=== PATIENT | male | born 1985 | race Caucasian/White ===

== ENCOUNTER 2017-08-12 18:42 | Emergency (ER) | payer SELFPAY ==
[~2017-08-12] VITALS: Ht 180.3 cm; Wt 90.7 kg
[2017-08-12] MEDS ORDERED: MULTIVIT INFUSN,ADULT 4,VIT K 10 ML, FOLIC ACID 1 MG, THIAMINE 100 MG in IV NORMAL SALI... IV SCH (19:15)
[2017-08-12 19:39] LABS: BASO # 0.1 x10^3/uL (0.0-0.2); BASO % 1 % (0-3); EOS % 4 % (0-3); HEMATOCRIT 44.2 % (39.0-53.0); HEMOGLOBIN 15.2 g/dL (13.0-17.5); LYMPH # 2.4 x10^3/uL (1.0-4.8); LYMPH % 28 % (24-48); MEAN CORPUSCULAR HEMOGLOBIN 31 pg (25-35); MEAN CORPUSCULAR HGB CONC 34 g/dL (31-37); MEAN CORPUSCULAR VOLUME 91 fL (79-100); MONO % 5 % (0-9); NEUT % 63 % (31-73); PLATELET COUNT 297 x10^3/uL (140-400); RED BLOOD COUNT 4.85 x10^6/uL (4.30-5.70); RED CELL DISTRIBUTION WIDTH 14.5 % (11.5-14.5); WHITE BLOOD COUNT 8.6 x10^3/uL (4.0-11.0)
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
[2017-08-12 19:52] LABS: ANION GAP 13 (6-14); BLOOD UREA NITROGEN 14 mg/dL (8-26); CALCIUM 9.2 mg/dL (8.5-10.1); CARBON DIOXIDE 25 mmol/L (21-32); CHLORIDE 105 mmol/L (98-107); CREATININE 0.8 mg/dL (0.7-1.3); GFR 111.3; GLUCOSE 96 mg/dL (70-99); POTASSIUM 3.7 mmol/L (3.5-5.1); SODIUM 143 mmol/L (136-145)
[2017-08-12 19:59] LABS: ALK PHOS 91 U/L (46-116); ALT (SGPT) 22 U/L (16-63); AST (SGOT) 13 U/L (15-37); DIRECT BILIRUBIN < 0.1 mg/dL (0.0-0.2); TOTAL BILIRUBIN 0.2 mg/dL (0.2-1.0)
[2017-08-12] MEDS ORDERED: IBUPROFEN 800 MG TABLET. PO ONE (20:15)
[2017-08-12 20:30] VITALS: BP 113/81
--- NOTE | 2017-08-13 08:02 | EKG ---
[facility] [address] [place] [address] Test Date: 2017-08-12 Test Time: 18:52:22 Pat Name: PERNELL SPRING Department: Room: Gender: M Product Distribution Specialist: : [id number] Requested By: KORIN HYATT Order Number: [id number] Reading MD: Desiree Robles Measurements Intervals [place] Rate: 83 P: 43 KS: 156 QRS: 47 QRSD: 88 T: 31 QT: 332 QTc: 395 Interpretive Statements SINUS RHYTHM NORMAL EKG Electronically Signed On 08-14-2017 19:17:46 CDT by Desiree Robles
== END 2017-08-12 21:00 | disposition home or self-care (01) ==
LOC: ER 18:42
DX: S16.1XXA Strain of muscle, fascia and tendon at neck level, initial encounter (principal); V43.52XA Car driver injured in collision with other type car in traffic accident, initial encounter; Y93.I9 Activity, other involving external motion; Y92.410 Unspecified street and highway as the place of occurrence of the external cause; Y99.8 Other external cause status
CPT/HCPCS: 36415; 70450; 72125; 80048; 80076; 83735; 85025; 85610; 85730; 93005; 96365; 99285; G0480; J7030